=== PATIENT | male | born 2000 | race Caucasian/White ===

== ENCOUNTER 2025-03-23 13:42 | Emergency (ER) | payer MEDICAID ==
[~2025-03-23] VITALS: Ht 180.3 cm; Wt 91.0 kg
[2025-03-23 13:51] VITALS: O2SAT 94
[2025-03-23 13:54] VITALS: BP 123/74; PULSE 78; RESP 16; TEMP 36.8; O2SAT 99
[2025-03-23 15:07] LABS: BASOPHILS % 0.2 % (0.0-2.0); EOSINOPHILS % 0.4 % (0.0-5.0); HEMATOCRIT. 44.5 % (42.0-52.0); HEMOGLOBIN. 15.1 g/dL (14.0-18.0); LYMPHOCYTES % 11.4 % (20.0-50.0); MEAN CORPUSCULAR HEMOGLOBIN 29.3 pg (28.0-32.0); MEAN CORPUSCULAR HGB CONC 33.8 g/dL (31.0-37.0); MEAN CORPUSCULAR VOLUME 86.6 fL (80.0-94.0); MEAN PLATELET VOLUME 8.2 fl (7.4-10.4); MONOCYTES % 6.7 % (2.0-8.0); NEUTROPHILS % 81.3 % (40.0-76.0); PLATELET 208 x1000/uL (130-400); RED BLOOD CELL COUNT 5.14 mill/uL (4.7-6.1); RED CELL DISTRIBUTION WIDTH 12.7 % (11.6-14.6); WHITE BLOOD COUNT 9.5 x1000/uL (4.5-11.0)
[2025-03-23 15:11] LABS: CHLORIDE 102 mEq/L (98-107); SODIUM 136 mEq/L (136-145)
[2025-03-23 15:12] LABS: CALCIUM 9.3 mg/dL (8.7-10.4); CARBON DIOXIDE 25 mEq/L (21-32)
[2025-03-23 15:17] LABS: CREATININE 0.8 mg/dL (0.6-1.3); GLUCOSE 102 mg/dL (70-105); UREA NITROGEN BLOOD 10 mg/dL (9-23)
[2025-03-23 15:19] LABS: ALANINE AMINOTRANSFERASE 29 IU/L (10-49); ALBUMIN 4.5 g/dL (3.2-4.8); ASPARTATE AMINOTRANSFERASE 21 IU/L (<34); BILIRUBIN DIRECT 0.2 mg/dL (<=3.0); BILIRUBIN TOTAL 1.1 mg/dL (0.1-1.0); PROTEIN TOTAL 8.4 g/dL (6.0-8.3)
[2025-03-23] MEDS ORDERED: TOBR5DRO47 LEFTEYE (15:34)
== END 2025-03-23 15:45 | disposition home or self-care (01) ==
LOC: ER 13:42
DX: R51.9 Headache, unspecified (principal)
CPT/HCPCS: 36415; 70486; 80048; 80076; 85025; 99284